=== PATIENT | female | born 1965 | race African-American/Black ===

== ENCOUNTER 2021-11-21 18:36 | Inpatient (IN) | payer OTHER ==
[2021-11-22 00:36] VITALS: BMI 34.6
[2021-11-22] MEDS ORDERED: BISMUTH SUBSALICYLATE 524 MG/30 ML PO PRN (03:06)
[2021-11-22] MEDS ORDERED: ACETAMINOPHEN 325 MG TABLET (FP) PO PRN ×2 (03:06)
[2021-11-22] MEDS ORDERED: ONDANSETRON *ODT* 4 MG TABLET SL PRN (03:06)
[2021-11-22] MEDS ORDERED: MENTHOL/PHENOL 1 EACH UD MM PRN (03:06)
[2021-11-22] MEDS ORDERED: methaDONE HCL 10 MG TABLET (FOR DETOX USE ONLY) PO ONE (03:06)
[2021-11-22] MEDS ORDERED: MAGNESIUM HYDROX 2400MG/30ML ORAL SUSPENSION 30 ML CUP PO PRN (03:06)
[2021-11-22] MEDS ORDERED: MAG HYDROX/AL HYDROX/SIMETH 30 ML UNIT-DOSE CUP PO PRN (03:06)
[2021-11-22] MEDS ORDERED: MAGNESIUM CITRATE 300 ML BOTTLE PO PRN (03:06)
[2021-11-22] MEDS ORDERED: methaDONE HCL 10 MG TABLET (FOR DETOX USE ONLY) ONE (03:46)
[2021-11-22] MEDS ORDERED: hydrOXYzine PAMOATE 25 MG CAPSULE (FP) PO SCH (06:00)
[2021-11-22] MEDS: PRENATAL VITAMINS W/ FOLIC ACID TABLET (FP) PO SCH (13:39)
[2021-11-22] MEDS: cloNIDine HCL 0.1 MG TABLET PO PRN (17:17)
[2021-11-22] MEDS: METHOCARBAMOL 500 MG TABLET PO PRN (17:17)
[2021-11-22] MEDS: diazePAM 5 MG TABLET PO PRN (18:25)
[2021-11-22] MEDS: MELATONIN 5 MG TABLETS PO SCH (23:33)
[2021-11-22] MEDS: THIAMINE HCL 100 MG TABLET (FP) PO SCH (23:33)
[2021-11-23] MEDS: cloNIDine HCL 0.1 MG TABLET PO PRN ×2 (01:07→15:28)
[2021-11-23] MEDS: diazePAM 5 MG TABLET PO PRN ×5 (01:07→22:08)
[2021-11-23] MEDS ORDERED: methaDONE HCL 10 MG TABLET (FOR DETOX USE ONLY) ONE (09:51)
[2021-11-23] MEDS: METHOCARBAMOL 500 MG TABLET PO PRN ×2 (10:21→22:09)
[2021-11-23] MEDS: PRENATAL VITAMINS W/ FOLIC ACID TABLET (FP) PO SCH (10:21)
[2021-11-23] MEDS: ARIPiprazole 2 MG TABLET PO SCH (22:08)
[2021-11-23] MEDS: MELATONIN 5 MG TABLETS PO SCH (22:09)
[2021-11-23] MEDS: THIAMINE HCL 100 MG TABLET (FP) PO SCH (22:09)
[2021-11-24] MEDS: cloNIDine HCL 0.1 MG TABLET PO PRN ×2 (00:52→09:26)
[2021-11-24] MEDS: IBUPROFEN 400 MG TABLET (FP) PO PRN ×2 (00:54→08:21)
[2021-11-24] MEDS: diazePAM 5 MG TABLET PO PRN ×3 (08:19→22:39)
[2021-11-24] MEDS: VENLAFAXINE HCL 75 MG E.R. CAPSULES PO SCH (09:26)
[2021-11-24] MEDS: METHOCARBAMOL 500 MG TABLET PO PRN ×2 (09:27→18:10)
[2021-11-24] MEDS: PRENATAL VITAMINS W/ FOLIC ACID TABLET (FP) PO SCH (09:29)
[2021-11-24] MEDS ORDERED: methaDONE HCL 10 MG TABLET (FOR DETOX USE ONLY) PO ONE (10:00)
[2021-11-24 10:29] LABS: HEMATOCRIT 35.2 % (32.4-45.2); HEMOGLOBIN 10.8 GM/dL (10.7-15.3); MCH 20.8 pg (25.7-33.7); MCHC 30.6 g/dl (32.0-36.0); MEAN CELL VOLUME 67.8 fl (80-96); MEAN PLT VOLUME 7.4 fl (7.5-11.1); PLATELET COUNT 281 10^3/uL (134-434); RBC 5.19 M/mm3 (3.60-5.2); RDW 16.7 % (11.6-15.6); WHITE BLOOD COUNT 6.3 K/mm3 (4.0-10.0)
[2021-11-24 10:57] LABS: ALBUMIN 3.5 g/dl (3.4-5.0); BLOOD UREA NITROGEN 20.3 mg/dL (7-18); CALCIUM 9.2 mg/dL (8.5-10.1)
[2021-11-24 11:00] LABS: CREATININE 0.9 mg/dL (0.55-1.3)
[2021-11-24 11:02] LABS: BILIRUBIN,TOTAL 0.2 mg/dL (0.2-1); TOT PROT 7.8 g/dl (6.4-8.2)
[2021-11-24 11:39] LABS: HIV INTERPRETATION NEGATIVE (NEGATIVE)
[2021-11-24] MEDS: NICOTINE 10 MG CARTRIDGE (INHALER) IH PRN (18:42)
[2021-11-24] MEDS: ARIPiprazole 2 MG TABLET PO SCH (22:25)
[2021-11-24] MEDS: MELATONIN 5 MG TABLETS PO SCH (22:39)
[2021-11-24] MEDS: THIAMINE HCL 100 MG TABLET (FP) PO SCH (22:42)
[2021-11-25] MEDS ORDERED: methaDONE HCL 10 MG TABLET (FOR DETOX USE ONLY) ONE (09:27)
[2021-11-25] MEDS: diazePAM 5 MG TABLET PO PRN (10:13)
[2021-11-25] MEDS: METHOCARBAMOL 500 MG TABLET PO PRN (10:13)
[2021-11-25] MEDS: VENLAFAXINE HCL 75 MG E.R. CAPSULES PO SCH (10:13)
[2021-11-25] MEDS: IBUPROFEN 400 MG TABLET (FP) PO PRN (10:16)
[2021-11-25] MEDS: PRENATAL VITAMINS W/ FOLIC ACID TABLET (FP) PO SCH (10:20)
[2021-11-25] MEDS: NICOTINE 10 MG CARTRIDGE (INHALER) IH PRN ×2 (10:21→22:29)
[2021-11-25] MEDS ORDERED: MELATONIN 5 MG TABLETS PO PRN ×2 (18:17→20:12)
[2021-11-25] MEDS ORDERED: LORazepam 2 MG/ML SDV VIAL IM ONE (19:10)
[2021-11-25] MEDS: ARIPiprazole 2 MG TABLET PO SCH (22:26)
[2021-11-25] MEDS: THIAMINE HCL 100 MG TABLET (FP) PO SCH (22:29)
[2021-11-26 08:03] VITALS: BP 106/63; PULSE 76; TEMP 97.5
[2021-11-26] MEDS ORDERED: methaDONE HCL 10 MG TABLET (FOR DETOX USE ONLY) PO ONE (10:00)
== END 2021-11-26 10:26 | disposition home or self-care (01) | DRG 897 ==
LOC: YASAS 18:36 → Y6N 11-22 12:43
PROVIDERS: ADMIT Allergy & Immunology; ATTEND Allergy & Immunology
PROC: HZ2ZZZZ Detoxification Services for Substance Abuse Treatment (ICD-10-PCS; principal; 2021-11-22)
DX: F11.23 Opioid dependence with withdrawal (principal); F17.200 Nicotine dependence, unspecified, uncomplicated; F25.1 Schizoaffective disorder, depressive type; F31.9 Bipolar disorder, unspecified; F43.10 Post-traumatic stress disorder, unspecified; F41.0 Panic disorder [episodic paroxysmal anxiety]; R73.9 Hyperglycemia, unspecified; Z62.810 Personal history of physical and sexual abuse in childhood; Z86.19 Personal history of other infectious and parasitic diseases; Z86.69 Personal history of other diseases of the nervous system and sense organs; Z91.51 Personal history of suicidal behavior; W19.XXXA Unspecified fall, initial encounter; Y92.238 Other place in hospital as the place of occurrence of the external cause
CPT/HCPCS: 36415; 80053; 82962; 85027; 86593; 86780; 87389; 93005; 93010; C9803; J0735; Q0162; U0003; U0005

== ENCOUNTER 2021-11-22 19:34 | Emergency (ER) | payer OTHER ==
[2021-11-22 19:45] VITALS: TEMP 98.4; BMI 27.3
[2021-11-22 22:01] LABS: BASO % 0.4 % (0-2.0); HEMATOCRIT 32.2 % (32.4-45.2); HEMOGLOBIN 10.2 GM/dL (10.7-15.3); LYMPH % 42.2 % (8-40); MCH 21.3 pg (25.7-33.7); MCHC 31.5 g/dl (32.0-36.0); MEAN CELL VOLUME 67.4 fl (80-96); MEAN PLT VOLUME 6.6 fl (7.5-11.1); MONO % 8.9 % (3.8-10.2); NEUT % 44.5 % (42.8-82.8); PLATELET COUNT 259 10^3/uL (134-434); RBC 4.78 M/mm3 (3.60-5.2); RDW 16.9 % (11.6-15.6); WHITE BLOOD COUNT 7.3 K/mm3 (4.0-10.0)
[2021-11-22 22:21] LABS: CALCIUM 8.8 mg/dL (8.5-10.1)
[2021-11-22 22:22] LABS: ALBUMIN 3.4 g/dl (3.4-5.0); BLOOD UREA NITROGEN 15.8 mg/dL (7-18)
[2021-11-22 22:25] LABS: CREATININE 0.8 mg/dL (0.55-1.3)
[2021-11-22 22:26] LABS: BILIRUBIN,TOTAL 0.2 mg/dL (0.2-1)
[2021-11-22 22:27] LABS: TOT PROT 7.6 g/dl (6.4-8.2)
[2021-11-22 23:50] VITALS: BP 129/73; PULSE 77
== END 2021-11-22 23:51 | disposition short-term general hospital (02) ==
LOC: JER 19:34
DX: Z04.3 Encounter for examination and observation following other accident (principal); W19.XXXA Unspecified fall, initial encounter; Y92.9 Unspecified place or not applicable
CPT/HCPCS: 36415; 70450-TC; 80053; 85025; 93005; 93010; 99284-25